=== PATIENT | female | born 1950 | race Caucasian/White ===

== ENCOUNTER 2016-05-11 15:50 | Emergency (ER) | payer OTHER ==
[~2016-05-11] VITALS: Ht 165.1 cm; Wt 95.8 kg
[~2016-05-11 15:50] MED LIST: CARBIDOPA/LEVO1 EACH PO; CHILD ASPIRIN81 M1 PO; CONCERTA18 MG PO; DEPAKOTE; DRISDOL50000 UNIT PO; FENOFIBRATE150 MG PO; HALCION0.25 MG PO; HYDROCHLOROTHIA25 MG PO; LEVOTHROID50 MCG PO; LITHIUM CARBON300 M2 PO; LOPRESSOR50 MG PO; LOSARTAN POTASS50 MG; LOSARTAN-HCTZ1 EAC1 PO; MIRAPEX0.25 MG PO; ONDANSETRON ODT4 MG; PRAMIPEXOLE D0.25 MG PO; PREMARIN0.45 MG PO; PROMETHAZINE HC25 M1 PO; PROZAC20 MG PO; RESTORIL15 MG PO; STAVZOR500 MG PO; SYNTHROID50 MCG PO; TEMAZEPAM PO; TEMAZEPAM15 MG; VICODIN 5-3001 EACH PO; VITAMIN D32000 UNI1 PO; ZOFRAN4 MG PO; ZYPREXA2.5 MG PO; ZYPREXA5 MG PO
[2016-05-11 16:45] LABS: HEMATOCRIT 43.1 % (36.0-46.0); MCH 29.5 PG (29.0-34.0); MCV 92.1 FL (83-99); MEAN PLAT.VOLUME 10.6 uM^3 (9.5-12.4); PLATELET COUNT 184 K/uL (156-360); RBC DIS.WIDTH-CV 13.5 % (11.8-14.6); RBC DIS.WIDTH-SD 44.5 % (39-53); RED BLOOD COUNT 4.68 M/uL (3.80-5.20); WHITE BLOOD COUNT 3.9 K/uL (4.1-10.2)
[2016-05-11 16:59] LABS: CHLORIDE 99 mEq/L (99-109); POTASSIUM 5.5 mEq/L (3.7-5.4); SODIUM 140 mEq/L (136-147)
[2016-05-11 17:01] LABS: GLUCOSE 152 mg/dL (70-99)
[2016-05-11 17:02] LABS: ANION GAP 12 MEQ/L (2-14)
[2016-05-11 17:04] LABS: GFR ESTIMATE (CALCULATED) 37 mL/min/
[2016-05-11 17:05] LABS: UREA NITROGEN (BUN) 31 mg/dL (9-23)
[2016-05-11 17:08] LABS: TROP-I INTERPRETATION NEGATIVE; TROPONIN-I < 0.01 ng/mL (0.0-0.30)
[2016-05-11 18:33] LABS: TROP-I INTERPRETATION NEGATIVE; TROPONIN-I < 0.01 ng/mL (0.0-0.30)
[2016-05-11 19:39] VITALS: BP 132/74
== END 2016-05-11 19:41 | disposition home or self-care (01) ==
LOC: EME 15:50
PROVIDERS: Emergency Medicine
DX: R07.9 Chest pain, unspecified (principal); J44.9 Chronic obstructive pulmonary disease, unspecified; E87.5 Hyperkalemia; G20 Parkinson's disease; I10 Essential (primary) hypertension; Z87.891 Personal history of nicotine dependence; Z79.82 Long term (current) use of aspirin
CPT/HCPCS: 71020; 80048; 84484; 85027; 99281; 99285